=== PATIENT | female | born 1990 | race Caucasian/White ===

== ENCOUNTER 2018-04-08 09:39 | Inpatient (IN) | payer BC, SELFPAY ==
[2018-04-08] MEDS: Lactated Ringer's 1,000 ML IV SCH ×2 (10:05→11:39)
[2018-04-08] MEDS ORDERED: CEFAZOLIN/Water 2 GM/20 ML SYRINGE SLOW IVP SCH (10:16)
[2018-04-08] MEDS ORDERED: Docusate 100 MG CAP PO PRN (10:16)
[2018-04-08] MEDS ORDERED: Butorphanol Tartrate 1 MG/ML VIAL SLOW IVP PRN (10:16)
[2018-04-08] MEDS ORDERED: NS w/ Oxytocin 10 units 500 ML IV SCH (10:16)
[2018-04-08] MEDS ORDERED: HYDROcodone/Acetaminophen 5/325 mg Tablet PO PRN ×2 (10:16)
[2018-04-08] MEDS ORDERED: Zolpidem Tartrate 5 MG TAB PO PRN ×2 (10:16→16:00)
[2018-04-08] MEDS ORDERED: Bicitra 30 ML UDCUP PO SCH (10:16)
[2018-04-08] MEDS ORDERED: Diphenoxylate HCl/Atropine Tablet PO PRN ×2 (10:16)
[2018-04-08] MEDS ORDERED: Lidocaine 1% (PF) 30 ML VIAL SC PRN (10:16)
[2018-04-08] MEDS ORDERED: Acetaminophen 500 MG TAB PO PRN (10:16)
[2018-04-08] MEDS ORDERED: Promethazine HCl 25 MG/ML VIAL IM PRN ×2 (10:16→17:50)
[2018-04-08] MEDS ORDERED: NS / Oxytocin 40 units/1000ml 1,000 ML IV PRN (10:16)
[2018-04-08] MEDS ORDERED: Misoprostol 200 MCG TAB PR PRN (10:16)
[2018-04-08] MEDS ORDERED: Ondansetron PF 4 MG/2 ML Vial IVP PRN ×3 (10:16→17:50)
[2018-04-08] MEDS ORDERED: Misoprostol 100 MCG TAB VAG SCH (10:16)
[2018-04-08 10:26] VITALS: BMI 39.9
[2018-04-08 10:49] LABS: Hemoglobin 14.4 g/dL (12.0-16.0); Mean Corpuscular HGB CONC 34.4 g/dL (32.0-36.0); Mean Corpuscular Hemoglobin 30.5 pg (27.0-31.0); Mean Corpuscular Volume 88.6 fL (78.0-98.0); Mean Platelet Volume 8.6 fL (7.4-10.4); Platelet Count 190 thou/uL (130-400); RBC Distribution Width 12.5 % (11.5-14.5); Red Blood Cell (RBC) Count 4.73 mill/uL (4.20-5.40)
[2018-04-08 11:29] LABS: HBSAg Index 0.18 S/CO (0-0.99); Hep B Surf Ag Non-Reactive S/CO (NonReactive); Syphilis Antibody Nonreactive (Nonreactive); Syphilis Antibody Index 0.04 S/CO (<1.00 Non-Reactive)
[2018-04-08] MEDS ORDERED: Morphine PF 1 MG/ML SYR ONE (11:51)
[2018-04-08] MEDS ORDERED: Bupivacaine 0.75% W/DEXTROSE 8.25% 2 ML AMP ONE (11:52)
[2018-04-08] MEDS ORDERED: Oxytocin 10 UNITS/ML VIAL ONE ×2 (11:52→13:33)
[2018-04-08] MEDS ORDERED: PHENYLEPHRINE-NS 100 MCG/ML 10 ML SYRINGE ONE ×2 (11:53→14:56)
[2018-04-08] MEDS ORDERED: Lidocaine 1% PF 5 ML VIAL ONE (11:59)
[2018-04-08] MEDS ORDERED: PROPOFOL 20 ML ONE (12:29)
[2018-04-08] MEDS ORDERED: Ondansetron PF 4 MG/2 ML Vial ONE ×2 (12:29→14:56)
[2018-04-08] MEDS ORDERED: Fentanyl 100 MCG/2 ML VIAL ONE (13:13)
[2018-04-08] MEDS ORDERED: Meperidine HCl/PF 25 MG/ML VIAL SLOW IVP PRN (13:30)
[2018-04-08] MEDS ORDERED: HYDROmorphone 2 MG/ML VIAL SLOW IVP PRN (13:30)
[2018-04-08] MEDS ORDERED: Ondansetron HCl/PF 4 MG/2 ML Vial IVP PRN (13:30)
[2018-04-08] MEDS ORDERED: Ketorolac Tromethamine 30 MG/ML VIAL IVP SCH (13:30)
[2018-04-08] MEDS ORDERED: L&D-Morphine 4 MG/ML VIAL SLOW IVP PRN (13:30)
[2018-04-08] MEDS ORDERED: Meperidine HCl/PF 25 MG/ML VIAL IM PRN (16:00)
[2018-04-08] MEDS ORDERED: NS / Oxytocin 40 units/1000ml 1,000 ML IV SCH (16:00)
[2018-04-08] MEDS ORDERED: diphenhydrAMINE 25 MG CAP PO PRN (16:00)
[2018-04-08] MEDS ORDERED: Acetaminophen 325 MG TAB PO PRN (16:00)
[2018-04-08] MEDS ORDERED: Lactated Ringer's 1,000 ML IV SCH (16:00)
[2018-04-08] MEDS ORDERED: Bisacodyl 10 MG SUPP PR PRN (16:00)
[2018-04-08] MEDS ORDERED: Adacel (T-DAP) 0.5 ML VIAL IM ONE (16:00)
[2018-04-08] MEDS ORDERED: Lanolin Ointment 7 GM TUBE TOP PRN (16:00)
[2018-04-08] MEDS: Ferrous Sulfate 325 MG TAB PO SCH (17:18)
[2018-04-08] MEDS ORDERED: Promethazine HCl 25 MG SUPP PR PRN (17:50)
[2018-04-08] MEDS ORDERED: Eucerin (Mineral Oil/Petrolatum,White) 30 gm Jar TOP PRN (17:50)
[2018-04-08] MEDS ORDERED: Naloxone HCl 0.4 mg/ml Vial IV PRN (17:50)
[2018-04-08] MEDS ORDERED: Naloxone HCl 0.4 mg/ml Vial IVP PRN ×2 (17:50)
[2018-04-08] MEDS ORDERED: diphenhydrAMINE 50 MG/ML VIAL IVP PRN (17:50)
[2018-04-08] MEDS ORDERED: Acetaminophen 1,000 MG in Premix Bag 1 BAG IVPB PRN (17:51)
[2018-04-08] MEDS ORDERED: Communication Order-Pharmacy FS SCH (18:00)
[2018-04-08] MEDS: Docusate Calcium (SURFAK) 240 MG CAP PO SCH (21:37)
[2018-04-08] MEDS: Simethicone Chewable 80 MG TAB PO PRN (21:37)
[2018-04-09] MEDS: HYDROcodone/Acetaminophen 5/325 mg Tablet PO PRN ×4 (03:59→18:32)
[2018-04-09 05:53] LABS: Hemoglobin 13.1 g/dL (12.0-16.0); Mean Corpuscular HGB CONC 34.3 g/dL (32.0-36.0); Mean Corpuscular Hemoglobin 30.3 pg (27.0-31.0); Mean Corpuscular Volume 88.2 fL (78.0-98.0); Mean Platelet Volume 8.8 fL (7.4-10.4); Platelet Count 160 thou/uL (130-400); RBC Distribution Width 12.3 % (11.5-14.5); Red Blood Cell (RBC) Count 4.31 mill/uL (4.20-5.40); White Blood Cell (WBC) Count 12.1 thou/uL (4.8-10.8)
--- NOTE | 2018-04-09 10:02 | PDOC.OPDEL ---
OB Operative/Delivery Note Delivery Dr/Surgeon: Micaela Dupont Pre-Delivery Diagnosis: breech (Garry), scheduled section Procedure/Post Delivery Dx: primary low transverse CS Weeks gestation: 39 Anesthesia: spinal - Findings A Sex: male - 1 min: 9 - 5 min: 9 - Additional Findings/Plan Placenta delivered: manual removal findings: low transverse hysterotomy without extension, normal uterus, normal tubes, normal ovaries Compilations/Other Findings: Procedure Note Date of Procedure: 04/08/2018 Resident Surgeon: Micaela Attending Surgeon: Kiah Procedure: Primary low transverse caesarean section Preoperative Diagnosis: 1)Term intrauterine at 39 wks 2)Garry breech presentation Postoperative Diagnosis: 1)Term intrauterine , delivered 2)pLTCS 3)Same as above Anesthesia: spinal Indications: The patient is a 27 year old female at 39 weeks gestation who presents for a repeat scheduled due to term with breech presentation. Procedure in Detail: After risks, benefits, and alternatives were explained to the patient, she gave informed consent. Pre-operative antibiotics included Cefazolin 2 gram IV. The patient was taken to the operating room and spinal anesthesia was initiated. She was placed in the supine position with a left tilt and prepped and draped in usual sterile fashion. A Pfannenstiel incision was made with a scalpel and carried down to the level of the fascia which was sharply nicked. The fascial cut was extended bilaterally with Fitzpatrick sissors. The inferior and superior edges of the cut fascial edges were elevated with Jose A clamps and the underlying rectus muscles were sharply and bluntly dissected free. The recti were divided digitally and retracted manually. The peritoneum was entered bluntly and retracted manually. Bladder blade was placed. Bladder flap was created with Metzenbaum scissors. A low transverse score was made with the scalpel and the uterus was entered in the midline with the scalpel. Clear fluid was seen. The hysterotomy was extended manually. The was noted to be breech and was easily delivered by fundal pressure and using maneuver. Mouth and nares were bulb suctioned. Cord clamped and cut and grossly normal male was handed to waiting nurse. Cord blood was obtained. Placenta was manually extracted, found to be intact with 3 vessel cord and discarded. The uterus was externalized and the endometrium was curetted with a dry lap. The bladder blade was replaced and the uterus was closed with a running locking #1 Chromic suture followed by a running non- locking #1 Chromic imbricating suture. Bladder flap was closed using . Following this hemostasis was noted. was placed on the uterus. The abdomen was irrigated with saline and suctioned free of clots. The uterus was internalized and the hysterotomy was again noted to be hemostatic. The peritoneum was closed using running non-locking suture. The rectus muscles were approximated using interrupted sutures. The fascia was closed with a running non-locking 0-Vicryl suture. The subcutaneous tissue was irrigated and bleeders were cauterized. The skin was approximated with char and a pressure dressing was placed. All counts were correct. The patient tolerated the procedure well and was taken to the recovery room in stable condition. Estimated Blood Loss: 750 ml Complications: None Specimens: Cord blood sent to lab for blood type Findings: Grossly normal male/female infant with apgars of _ and _. Grossly normal placenta with 3 vessel cord discarded. Drains: Diane to gravity draining clear urine Post delivery plan: routine recovery
[2018-04-09] MEDS: Ferrous Sulfate 325 MG TAB PO SCH ×2 (10:28→18:33)
[2018-04-09] MEDS: Prenatal Vitamin 1 TAB PO SCH (10:29)
[2018-04-09] MEDS: Docusate Calcium (SURFAK) 240 MG CAP PO SCH ×2 (10:29→19:35)
[2018-04-09] MEDS: Simethicone Chewable 80 MG TAB PO PRN ×2 (10:29→19:35)
--- NOTE | 2018-04-09 21:51 | OP-2 ---
DATE OF PROCEDURE: 04/08/2018 RESIDENT SURGEON: Dr. Brittanie Hinojosa. ATTENDING SURGEON: Dr. Galdino Dupont. PROCEDURE: Primary low transverse section. PREOPERATIVE DIAGNOSES: 1. Term intrauterine at 39 weeks. 2. Xiomara breech presentation. POSTOPERATIVE DIAGNOSES: 1. Term intrauterine , delivered. 2. Primary low transverse . 3. Xiomara breech presentation. ANESTHESIA: Spinal. INDICATIONS: This is a 27-year-old female, G1, P0 at 39 weeks gestation who presented for a primary section due to Term at 39 weeks with xiomara breech presentation. PROCEDURE IN DETAIL: After risks, benefits, and alternatives were explained to the patient, she gave informed consent. Preoperative antibiotics included cefazolin 2 grams IV. The patient was taken to the operating room and spinal anesthesia was initiated. She was placed in the supine position with left tilt and prepped and draped in the usual sterile fashion. A Pfannenstiel incision was made with the scalpel and carried down to the level of the fascia which was sharply nicked. The fascial cut was extended bilaterally with Fitzpatrick scissors. The inferior and superior edges of the cut fascial edges were elevated with Jose A clamps and the underlying rectus muscles were sharply and bluntly dissected free. The recti were divided digitally and retracted manually. The peritoneum was entered bluntly and retracted manually. Bladder blade was placed. Bladder flap was created with Metzenbaum scissors. A low transverse score was made with scalpel and the uterus was entered in the midline with the scalpel. Clear fluid was seen. The hysterotomy was extended manually. The infant was noted to be footling breech and was easily delivered using fundal pressure and Mauriceau's maneuver. Mouth and nares were bulb suctioned. Cord clamped and cut and grossly normal male was handed to the waiting nurse. Cord blood was obtained. Placenta was manually extracted, found to be intact with a 3-vessel cord discarded. The uterus was externalized and the endometrium was curetted with a dry lap. The bladder blade was replaced and the uterus was closed with a running, locking #1 chromic suture followed by a running #1 chromic imbricating suture. Bladder flap was closed using 2-0 Monocryl suture. Following this, hemostasis was noted. Seprafilm was placed on the uterus. The abdomen was irrigated with saline and suctioned free of clots. The uterus was internalized and the hysterotomy was again noted to be hemostatic. Peritoneum was closed using running, non-locking 2-0 Vicryl sutures. The rectus muscles were approximated using interrupted 2-0 Vicryl sutures. The fascia was closed with a running nonlocking 0 Vicryl suture. The subcutaneous tissue was irrigated and bleeders were cauterized. The subcutaneous tissue was brought together using 2-0 plain gut suture. The skin was approximated with 4-0 Monocryl and the pressure dressing was placed. All counts were correct. The patient tolerated the procedure well and was taken to the recovery room in stable condition. ESTIMATED BLOOD LOSS: Less than 500 mL. COMPLICATIONS: None. SPECIMENS: Cord blood sent to lab for blood type. FINDINGS: Grossly normal male infant with Apgars of 9 and 9. Grossly normal placenta with three-vessel cord discarded. DRAINS: Diane to gravity draining clear urine. POST-DELIVERY PLAN: Routine recovery. [facility]
[2018-04-10] MEDS: Ferrous Sulfate 325 MG TAB PO SCH ×2 (07:35→14:07)
[2018-04-10] MEDS: Docusate Calcium (SURFAK) 240 MG CAP PO SCH ×2 (09:35→21:45)
[2018-04-10] MEDS: Prenatal Vitamin 1 TAB PO SCH (09:35)
[2018-04-10] MEDS: Simethicone Chewable 80 MG TAB PO PRN ×2 (09:39→21:45)
[2018-04-10] MEDS: HYDROcodone/Acetaminophen 5/325 mg Tablet PO PRN ×2 (12:23)
[2018-04-11] MEDS: HYDROcodone/Acetaminophen 5/325 mg Tablet PO PRN (00:11)
[2018-04-11 07:56] VITALS: BP 106/56; TEMP 97.9
[2018-04-11] MEDS: Ferrous Sulfate 325 MG TAB PO SCH (08:07)
[2018-04-11] MEDS: Prenatal Vitamin 1 TAB PO SCH (08:09)
[2018-04-11] MEDS: Docusate Calcium (SURFAK) 240 MG CAP PO SCH (08:09)
== END 2018-04-11 12:45 | disposition home or self-care (01) | DRG 788 ==
LOC: L&D 09:39 → 3SW 16:11
PROVIDERS: ADMIT Obstetrics & Gynecology; ATTEND Obstetrics & Gynecology
PROC: 10D00Z1 Extraction of Products of Conception, Low, Open Approach (ICD-10-PCS; principal; 2018-04-08)
DX: O32.1XX0 Maternal care for breech presentation, not applicable or unspecified (principal); Z3A.39 39 weeks gestation of pregnancy; Z37.0 Single live birth; O26.843 Uterine size-date discrepancy, third trimester
CPT/HCPCS: 36415; 51702; 76815; 85027; 86780; 86850; 86900; 86901; 87340; J1885; J2001; J2274; J2405; J2590; J2704; J3010; J3490